=== PATIENT | female | born 1970 | race Caucasian/White ===

== ENCOUNTER 2024-10-20 18:17 | Emergency (ER) | payer BC, SELFPAY ==
[2024-10-20 18:23] VITALS: BP 145/113
[2024-10-20] MEDS: DECADRON 10 MG IV (19:48)
[2024-10-20] MEDS: VALIUM INJECTION 5 MG IV (19:48)
[2024-10-20] MEDS: TORADOL 15 MG IV (19:48)
[2024-10-20] MEDS: NSS 1000 IV (19:49)
--- NOTE | 2024-10-20 20:26 | ED.GENMED ---
History of Present Illness
General
Chief Complaint: Back Pain
Source: patient
Exam Limitations: none
Time Seen by Provider: 10/20/24 19:33
Nursing documentation reviewed up to this point in time: agreed with
History of Present Illness
History of Present Illness:
53-year-old female presents with severe right lower back pain. No significant past medical history. pain localized to the right lower back, first experienced two weeks ago. The pain began after the patient lifted a case of water while working at a
[employer] game. The patient describes experiencing a 'twinge' in her lower back when pulling the case down from a shelf. She initially rested and found some relief but, pain got worse after shoving her dog, an 80-pound Armenian sotelo, out of the
way while she was laying in bed approximately one week ago. This activity exacerbated her pain. Since then, the pain has progressively worsened. The patient denies any relief with position changes and states the only comfort was previously found
lying on her stomach, a position no longer comfortable. She has taken 800 mg of Motrin with no significant relief and has also took a Baclofen earlier today, which was ineffective. The patient reports that the pain radiates from her lower back down
to lower buttock and starting to go down her posterior thigh. She denies bowel or bladder incontinence, denies saddle anesthesia.
Past History
Past History
ED Past Medical History: None; Negative Asthma, HTN, Hypercholesterolemia or NIDDM
ED Past Surgical History: (X 2)
Social History
Tobacco: Non-smoker
Alcohol: None
Personal:
Living: with family
Phy Exam
Physical Exam
Physical Exam:
GENERAL: Moderate distress due. A&Ox3.
CONSTITUTIONAL: Afebrile.
EYES: clear, conjunctivae normal
ENMT: moist mucus membranes, Pharynx nl
RESPIRATORY: Regular respirations, nonlabored, lungs clear.
CARDIOVASCULAR: Regular rate and rhythm, no murmurs, no rubs.
GI: Soft, nontender, normal BS
MUSCULOSKELETAL: Moves with ease. Well perfused.
SKIN: Warm, dry, pink
PSYCH: Normal mood and affect. Well kept, interactive and appropriate
NEUROLOGIC: Awake, alert and oriented. No focal neurological deficits
Course
Orders/Labs/Results
Orders:
Orders
10/20/24 19:40
Dexamethasone Sod Phosphate [Decadron] 10 mg IV NOW STA
Ketorolac [Toradol] 15 mg IV NOW STA
diazePAM [Valium Injection] 5 mg IV NOW STA
10/20/24 19:41
0.9% Sodium Chloride 1000 ml [Nss] 1,000 ml IV BOLUS
10/20/24 20:37
HYDROmorphone [Dilaudid] 1 mg IV NOW STA
Ondansetron Injectable [Zofran] 4 mg IV NOW STA
10/20/24 22:11
Hydrocodone 5/APAP 325 [[place] 5/325] 1 tablet PO NOW STA
Vital Signs
Initial and Last Documented VS:
Initial Vital Signs
Temp Pulse Ox
98.5 F 98
10/20/24 18:20 10/20/24 18:20
Last Documented Vital Signs
Temp Pulse Resp BP Pulse Ox
98 F 123 18 116/90 95
10/20/24 18:23 10/20/24 18:23 10/20/24 18:23 10/20/24 22:14 10/20/24 22:03
MDM/Problems Addressed
Differential Diagnosis Includes:
Musculoskeletal pain, SI joint sprain
MDM/Problems Addressed:
53-year-old female presents with severe right lower back pain. No significant past medical history. pain localized to the right lower back, first experienced two weeks ago. The pain began after the patient lifted a case of water while working at a
[employer] game. The patient describes experiencing a 'twinge' in her lower back when pulling the case down from a shelf. She initially rested and found some relief but, pain got worse after shoving her dog, an 80-pound Armenian sotelo, out of the
way while she was laying in bed approximately one week ago. This activity exacerbated her pain. Since then, the pain has progressively worsened. The patient denies any relief with position changes and states the only comfort was previously found
lying on her stomach, a position no longer comfortable. She has taken 800 mg of Motrin with no significant relief and has also took a Baclofen earlier today, which was ineffective. The patient reports that the pain radiates from her lower back down
to lower buttock and starting to go down her posterior thigh. She denies bowel or bladder incontinence, denies saddle anesthesia.
No neuro deficits
Pt screams out in pain with movement but able to get up from sitting on chair and ambulate to stretcher.
8:30 PM:
After IV Toradol, Decadron and Valium patient continues to scream out in pain anytime she moves her legs.
Patellar reflexes are normal bilaterally, strength equal bilaterally, she cannot raise either leg without significant pain
Dilaudid and Zofran ordered
Pt feeling much better, OOB and ambulating well.
Rx for Flexeril, prednisone and #5 hydrocodone sent to her pharmacy
*Pulse Oximetry
SaO2: 97
Oxygen Mode of Delivery: Room air
Patient hypoxic: not evaluated
*Critical Care Note
Total Time (30-74mins, 75-104mins- exclusive of procedures): Not Applicable
ED Attending Note
-
Portions of this chart may have been created with voice recognition software.� Occasional wrong word or��sound alike� substitutions may have occurred due to the inherent limitations of voice recognition software.
Discharge Plan
Departure
Patient Disposition: Home (Routine Discharge)
Date of Disposition: 10/20/24
Time of Disposition: 22:12
Patient with high blood pressure during this ER visit?: No
Condition: Good
Discharge Problem:
Acute low back pain
Instructions: Low Back Pain (DC), Sacroiliac Joint Pain (DC)
Prescriptions:
New
cyclobenzaprine 10 mg tablet
10 mg PO TID PRN (Reason: Pain/muscle spasm) Qty: 30 0RF
methylprednisolone [Medrol (Irving)] 4 mg tablets,dose pack
See Rx Instructions .ROUTE .COMPLEX Qty: 21 0RF
Rx Instructions:
orally per package directions
hydrocodone-acetaminophen 5-325 mg tablet
1 tab PO Q6H PRN (Reason: Pain) Qty: 5 0RF
No Action
cephalexin 500 MG capsule
500 mg PO BID Qty: 19 0RF
Referrals:
NONE,* [Family Provider, Internal Medicine]
Activity Restrictions/Additional Instructions:
As we discussed, I sent your information to our primary care provider hotline and someone should call you within the next few days to get you a primary care provider.
I sent a prescription to your pharmacy for Flexeril or cyclobenzaprine which is a muscle relaxant
I sent a prescription to your pharmacy for hydrocodone which is Vicodin
I sent a prescription to your pharmacy for a Medrol Dosepak which is a steroid
Take ibuprofen 600 mg every 6 hours for mild to moderate pain and use the hydrocodone for worse pain.
You were given a dose of steroid here today as well as a muscle relaxant so do not drive tonight
Interventions
Interventions:
*Risk Screen - Suicide Last Done: 10/20/24 18:20
*General Assessment Last Done: 10/20/24 18:20
*Neglect/Abuse Screening Last Done: 10/20/24 18:20
*ED- Fall Risk Assessment Last Done: 10/20/24 18:20
*ED COVID-19 Vaccine History Last Done: 10/20/24 18:20
*Nursing Disposition Last Done: 10/20/24 22:28
ED-Musculoskeletal Assessment Last Done: 10/20/24 19:39
Discharge Date and Time
Discharge Date/Time: 10/20/24 22:51
Print Language: YORUBA
[2024-10-20] MEDS: ZOFRAN 4 MG IV (20:50)
[2024-10-20] MEDS: DILAUDID 1 MG IV (20:51)
[2024-10-20 22:14] VITALS: BP 116/90
[2024-10-20] MEDS: NORCO 5/325 1 TABLET PO (22:19)
== END 2024-10-20 22:51 | disposition home or self-care (01) ==
LOC: EMR 18:17
PROVIDERS: EMERGENCY PHYSICIAN Emergency Medicine
DX: M54.50 Low back pain, unspecified (principal); Z98.891 History of uterine scar from previous surgery
CPT/HCPCS: 99282; 96374; 96375; 96361

== ENCOUNTER 2024-12-22 10:19 | Emergency (ER) | payer BC, SELFPAY ==
[2024-12-22 10:24] VITALS: BP 145/95
--- NOTE | 2024-12-22 11:09 | ED.GENMED ---
History of Present Illness
General
Chief Complaint: Back Pain
Time Seen by Provider: 12/22/24 11:09
History of Present Illness
History of Present Illness:
FOCUSED PAST MEDICAL HISTORY
- Low back pain
REVIEW OF OLD RECORDS
- The patient was seen here with low back pain in September. At that time she was given steroids, Toradol, Valium, Dilaudid, was given a prescription for oral narcotics
- I contacted Dr. Dominguez who sent the results of the MRI which showed:
T12-L1, L1-L2, L2-L3, L3-L4, no disc bulge or herniation
L4-L5: Minimal disc bulge
L5-S1: Mild disc bulge
Note:
CHIEF COMPLAINT(S)
Numbness and tingling in the lower back and legs, and pressure sensation around the bladder area.
HISTORY OF PRESENT ILLNESS
The patient is a 54-year-old female presenting with worsening symptoms of numbness and tingling in the lower back and legs, along with bladder pressure that started since September after lifting a case of water. Initially evaluated in September at the
emergency department and since has seen her primary care physician, also being referred to [facility]. The MRI was ordered and is scheduled for December 18, with a follow-up appointment with orthopedics set for December 25. She
describes the sensation in her legs as if circulation is being cut off and notes a pressure in the bladder area, although she denies any urinary incontinence or burning on urination. The patient is worried about these symptoms as they are new and
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 She has been experiencing these progressively worsening symptoms and has described them as 'really scary.'
PHYSICAL EXAM
General: Somewhat uncomfortable at times especially with certain position changes of the back, otherwise alert without acute distress.
Skin: Warm, dry.
Head: Normocephalic, atraumatic.
Neck: Supple, trachea midline.
Eye, Ears, Nose, and Throat: Oral mucosa moist.
Cardiovascular: Normal peripheral perfusion, No edema.
Respiratory: Respirations are non-labored.
Gastrointestinal: Abdomen nondistended, patient states that the bladder exhibits pressure sensation but no significant abdominal tenderness.
Back: Decreased active range of motion into any motion of the thoracolumbar spine related to pain
Musculoskeletal: Good strength in L5 and S1 distribution, fairly good active range of motion. Strong DP pulses in both lower extremities
Neurological: Excellent sensation, strength, and able to lift each leg independently. No focal neurological deficit observed.
Psychiatric: Cooperative, appropriate mood & affect.
PLAN
1. The patient will be given the same medication provided during the last emergency visit to manage pain.
2. Reach out to [facility] to obtain MRI results or discuss findings if possible.
3. A urine specimen will be collected for further evaluation.
4. Follow up with orthopedics as planned post MRI on December 25 for further assessment and management guidance.
DIFFERENTIAL DIAGNOSIS
The Differential Diagnosis includes, in no particular order and is not limited to:
1. Lumbar radiculopathy
2. Peripheral neuropathy
3. Spinal stenosis
4. Intervertebral disc herniation
5. Bladder dysfunction
6. Vascular insufficiency
7. Muscular strain or injury
8. Myofascial pain syndrome
9. Multiple sclerosis
10. Sacroiliac joint dysfunction
RADIOLOGY
- CT of the abdomen pelvis without contrast shows no abnormality
LABS
- CBC and chemistries unremarkable, normal renal function, hCG negative, 3+ leukocyte esterase but favor more of a contaminated specimen given the increased number of squamous epithelial cells
UPDATE
- I discussed case with Dr. Dominguez from [facility] and he shared with me the MRI from last month which was relatively unremarkable. The patient was given Toradol and Decadron IV without significant improvement. IV Dilaudid was then
given.
SUMMARY OF ENCOUNTER
The patient, a 54-year-old female, presented to the emergency department with worsening numbness and tingling in the lower back and legs, as well as pressure sensation around the bladder area. These symptoms have been ongoing since September and have
progressively worsened, significantly impacting her daily activities. During evaluation, a CT scan of the abdomen and pelvis without contrast was obtained, which did not indicate a kidney stone or any concerning cause of her symptoms. A urinalysis
showed increased white blood cells and a significant amount of squamous epithelial cells, suggesting specimen contamination. Despite MRI findings indicating some disc bulging, typical of many asymptomatic individuals, there is no definitive
explanation for her pain. A potential muscular cause is considered. The orthopedics evaluation is scheduled for further assessment.
PLAN
1. Start the patient on another round of steroids for several days.
2. Prescribe a narcotic for pain management for a few days.
3. Ensure follow-up with orthopedics on the planned date for further evaluation and management.
4. Discuss the possibility of physical therapy or exercises post-orthopedic evaluation as a potential treatment.
5. I did obtain the MRI report from Dr. Dominguez
PATIENT EDUCATION AND COUNSELING
The patient was counseled about her condition and the non-concerning findings of the imaging studies. Discussed the potential muscular cause of symptoms and the importance of follow-up with orthopedics. Explained the plan for medication management
and encouraged physical therapy as a potential option based on the upcoming orthopedic evaluation.
FOLLOW-UP INSTRUCTIONS
The patient was instructed to follow up with the orthopedic doctor as scheduled on Monday for further assessment and management guidance.
MEDICATION RECONCILIATION
1. Steroid medication prescribed for several days.
2. A narcotic prescribed for pain management for a few days.
MEDICAL DECISION MAKING
-Complexity of Data Reviewed: Chronic conditions affecting care included lumbar radiculopathy, peripheral neuropathy, spinal stenosis, intervertebral disc herniation, bladder dysfunction, vascular insufficiency, muscular strain or injury, myofascial
pain syndrome, multiple sclerosis, and sacroiliac joint dysfunction.
-Data:
Category 1
The patients urinalysis and CT scan were reviewed. Also, the MRI findings from a prior evaluation were considered.
Category 3
Management was discussed with the radiologist regarding the CT scan interpretation.
-Risk:
Prescription medication was prescribed, including a steroid and a narcotic for pain management.
DIAGNOSIS
Lumbar radiculopathy - ICD-10: M54.16
Muscular strain - ICD-10: S39.012A
Past History
Past History
ED Past Medical History: None; Negative Asthma, HTN, Hypercholesterolemia or NIDDM
ED Past Surgical History: (X 2)
Social History
Tobacco: Non-smoker
Alcohol: None
Personal:
Living: with family
Phy Exam
Physical Exam
Physical Exam:
See HPI
Course
Orders/Labs/Results
Orders:
Orders
12/22/24 10:53
Test Result ONCE
12/22/24 11:17
Bladder Scan- Treatment ONCE
Comment: post void residual
Dexamethasone Sod Phosphate [Decadron] 10 mg IV NOW STA
Ketorolac [Toradol] 15 mg IV NOW STA
12/22/24 11:51
Complete Blood Count/With Diff Urgent
Comprehensive Metabolic Panel Urgent
HCG, Serum Qualitative Screen Urgent
Urinalysis Reflex To Culture Urgent
Date Specimen was Collected: 12/22/24
Time Specimen was Collected: 10:53
Urine Microscopic Reflex Cult Urgent
Urine Culture Urgent
MARJORIE Source: U
Specimen Description:
Date Specimen was Collected: 12/22/24
Time Specimen was Collected: 10:53
12/22/24 12:26
HYDROmorphone [Dilaudid] 1 mg IV NOW STA
Ondansetron Injectable [Zofran] 4 mg IV NOW STA
12/22/24 12:57
CT Abd/pel Without Iv Or Oral Urgent
Comment:
Reason For Exam: severe back pain urinary hesitancy
Abnormal Lab Results
12/22/24
11:51
RDW 14.6 H %
(11.5-14.5)
Glucose 105 H mg/dl
(70-99)
Calcium 10.5 H mg/dl
(8.4-10.2)
Leukocyte Esterase Rfl 3+ A
(Negative)
Urine RBC 3-6 A /HPF
(0-2)
Urine WBC (Reflex) 30-40 A /HPF
(0-5)
Urine Bacteria (Reflex) Moderate A
(Negative)
Urine Albumin (Reflex) 1+ A
(Neg - Trace)
12/22/24 11:51
12/22/24 11:51
Vital Signs
Initial and Last Documented VS:
Initial Vital Signs
Temp Pulse Resp BP Pulse Ox
36.5 C 100 16 145/95 97
12/22/24 10:24 12/22/24 10:24 12/22/24 10:24 12/22/24 10:24 12/22/24 10:24
Last Documented Vital Signs
Temp Pulse Resp BP Pulse Ox
36.5 C 100 16 126/98 98
12/22/24 10:24 12/22/24 10:24 12/22/24 10:24 12/22/24 13:53 12/22/24 13:54
*Pulse Oximetry
SaO2: 97
Oxygen Mode of Delivery: Room air
Patient hypoxic: no
*Critical Care Note
Total Time (30-74mins, 75-104mins- exclusive of procedures): Not Applicable
ED Attending Note
-
Portions of this chart may have been created with voice recognition software.� Occasional wrong word or��sound alike� substitutions may have occurred due to the inherent limitations of voice recognition software.
Discharge Plan
Departure
Patient Disposition: Home (Routine Discharge)
Date of Disposition: 12/22/24
Time of Disposition: 14:48
Patient with high blood pressure during this ER visit?: Yes
Discharge Problem:
Low back pain
Instructions: Low Back Pain (DC), BLOOD PRESSURE
Prescriptions:
New
oxycodone-acetaminophen [Percocet] 5-325 mg tablet
1 - 2 tab PO Q8H PRN (Reason: Pain) Qty: 14 0RF
prednisone 50 mg tablet
50 mg PO DAILY Qty: 4 0RF
No Action
cephalexin 500 MG capsule
500 mg PO BID Qty: 19 0RF
cyclobenzaprine 10 mg tablet
10 mg PO TID PRN (Reason: Pain/muscle spasm) Qty: 30 0RF
methylprednisolone [Medrol (Irving)] 4 mg tablets,dose pack
See Rx Instructions .ROUTE .COMPLEX Qty: 21 0RF
Rx Instructions:
orally per package directions
hydrocodone-acetaminophen 5-325 mg tablet
1 tab PO Q6H PRN (Reason: Pain) Qty: 5 0RF
Referrals:
Pool Holguin DO [Non-Admitting Privileges, Orthopedics]
[facility] Marroquin DO [Family Provider, Family Practice]
Activity Restrictions/Additional Instructions:
I sent a prescription for narcotic to your pharmacy. I also sent in prescription for steroids. If you take the narcotic I recommend taking something like MiraLAX to prevent constipation. Follow-up with your orthopedist on Monday.
Brief summary of MRI:
T12-L1, L1-L2, L2-L3, L3-L4: no disc bulge or herniation
L4-L5: Minimal disc bulge
L5-S1: Mild disc bulge
Do not drive if you take narcotic analgesia.
Interventions
Interventions:
*Risk Screen - Suicide Last Done: 12/22/24 10:24
*General Assessment Last Done: 12/22/24 11:37
*Neglect/Abuse Screening Last Done: 12/22/24 10:24
*ED- Fall Risk Assessment Last Done: 12/22/24 11:37
*ED COVID-19 Vaccine History Last Done: 12/22/24 11:37
*ED Influenza Vaccine History Last Done: 12/22/24 11:37
ED-Musculoskeletal Assessment Last Done: 12/22/24 12:42
Discharge Date and Time
Print Language: THAI
[2024-12-22 11:36] VITALS: BMI 33.2
[2024-12-22] MEDS: TORADOL 15 MG IV (11:44)
[2024-12-22] MEDS: DECADRON 10 MG IV (11:44)
[2024-12-22 11:53] VITALS: BP 145/111
[2024-12-22 12:05] LABS: Urine Character Clear (Clear)
[2024-12-22 12:11] LABS: Hematocrit 41.5 % (37.0-47.0); Hemoglobin 13.7 g/dL (12.0-16.0); Mean Corp Hgb Conc. 33.0 g/dL (33.0-37.0); Mean Corpuscular Volume 91.2 fL (81.0-99.0); Nucleated Red Blood Cells % 0 %; Platelet Count 307 10^3/uL (130-400); Red Cell Dist. Width 14.6 % (11.5-14.5)
[2024-12-22 12:22] LABS: HCG, Serum Qualitative Screen Negative
[2024-12-22 12:25] LABS: ALT (SGPT) 32 U/L (0-35); AST (SGOT) 32 U/L (14-36); Albumin 4.6 g/dl (3.5-5.0); Alkaline Phosphatase 73 U/L (38-126); Blood Urea Nitrogen 15 mg/dl (7-17); Calcium 10.5 mg/dl (8.4-10.2); Carbon Dioxide 23 mmol/L (22-30); Chloride 107 mmol/L (98-107); Estimated Creatinine Clearance 90 ml/min; Glucose 105 mg/dl (70-99); Potassium 4.7 mmol/L (3.5-5.1); Sodium 138 mmol/L (135-145); Total Protein 7.7 g/dl (6.3-8.2); eGFR > 60.00
[2024-12-22] MEDS: ZOFRAN 4 MG IV (12:32)
[2024-12-22] MEDS: DILAUDID 1 MG IV (12:32)
[2024-12-22 13:04] LABS: Urine Squamous Cell >30 /LPF (Few)
[2024-12-22 13:05] LABS: Urine White Cell 30-40 /HPF (0-5)
[2024-12-22 13:53] VITALS: BP 126/98
== END 2024-12-22 16:00 | disposition home or self-care (01) ==
LOC: EMR 10:19
PROVIDERS: Student in an Organized Health Care Education/Training Program; EMERGENCY PHYSICIAN Emergency Medicine; FAMILY PHYSICIAN Family Medicine
DX: M54.50 Low back pain, unspecified (principal); R03.0 Elevated blood-pressure reading, without diagnosis of hypertension; M51.369 Other intervertebral disc degeneration, lumbar region without mention of lumbar back pain or lower extremity pain; M51.379 Other intervertebral disc degeneration, lumbosacral region without mention of lumbar back pain or lower extremity pain
CPT/HCPCS: 99284; 96374; 96375 ×3; 74176; 80053; 81003; 81015; 84703; 85025; 87086